=== PATIENT | female | born 1990 | race African-American/Black ===

== ENCOUNTER 2018-07-22 21:06 | Emergency (ER) | payer OTHER ==
[~2018-07-22] VITALS: Ht 167.6 cm; Wt 190.5 kg
[~2018-07-22 21:06] MED LIST: ACYCLOVIR 200200 MG PO; CIPROFLOXACIN500 M1 PO; CYCLOBENZAPRINE5 MG PO; FLAGYL500 MG PO; IBUPROFEN 600600 M1 PO; KEFLEX500 MG PO; NOHOMEMEDICATIONS; NORCO 5-325 TA1 EACH PO; NORCO 7.5-3251 EACH PO; PRENATAL COMPL1 EACH PO; PRILOSEC 20 MG20 MG PO; TRAMADOL 50 MG50 MG PO; VALIUM2 MG PO; ZOFRAN ODT4 MG PO
[2018-07-22 21:10] VITALS: BP 146/86
== END 2018-07-22 22:05 | disposition home or self-care (01) ==
LOC: ER 21:06
DX: S40.862A Insect bite (nonvenomous) of left upper arm, initial encounter (principal); I50.9 Heart failure, unspecified; Z90.49 Acquired absence of other specified parts of digestive tract; Z98.890 Other specified postprocedural states; W57.XXXA Bitten or stung by nonvenomous insect and other nonvenomous arthropods, initial encounter; Y93.89 Activity, other specified; Y92.89 Other specified places as the place of occurrence of the external cause; Y99.8 Other external cause status

== ENCOUNTER 2018-09-08 11:22 | Emergency (ER) | payer OTHER ==
[~2018-09-08] VITALS: Ht 167.6 cm; Wt 181.4 kg
[2018-09-08 11:37] VITALS: BP 168/47
[2018-09-08 11:46] LABS: URINE BILIRUBIN NEGATIVE (Negative); URINE BLOOD TRACE (Negative); URINE CLARITY CLEAR; URINE COLOR YELLOW; URINE GLUCOSE-RANDOM* NEGATIVE (Negative); URINE KETONES NEGATIVE (Negative); URINE LEUKOCYTES-REFLEX 3+ (Negative); URINE NITRITE-REFLEX POSITIVE (Negative); URINE PROTEIN (DIPSTICK) NEGATIVE (Negative); URINE UROBILINOGEN 0.2 E.U./dl (0.2-1.0)
[2018-09-08 11:54] LABS: AMORPHOUS URATES Moderate /LPF (None Seen); CASTS None Seen /LPF (None Seen); SQUAMOUS 4-10 Moderate /LPF (0-3); URINE RBC 3-10 Few /HPF (0-2); URINE WBC-REFLEX >25 Many /HPF (0-5); WBC CLUMPS Few (None Seen)
[2018-09-08] MEDS ORDERED: FLAGYL500 M1 PO (13:02)
[2018-09-08] MEDS ORDERED: KEFLEX500 M1 PO (13:03)
== END 2018-09-08 13:43 | disposition home or self-care (01) ==
LOC: ER 11:22
PROVIDERS: Emergency Medicine
DX: N39.0 Urinary tract infection, site not specified (principal); A59.01 Trichomonal vulvovaginitis; Z90.49 Acquired absence of other specified parts of digestive tract; Z98.890 Other specified postprocedural states

== ENCOUNTER 2019-02-08 08:07 | Emergency (ER) | payer OTHER ==
[~2019-02-08] VITALS: Ht 167.6 cm; Wt 181.4 kg
[~2019-02-08 08:07] MED LIST changes: +FLAGYL500 M1 PO; +KEFLEX500 M1 PO
[2019-02-08 08:36] LABS: URINE BILIRUBIN NEGATIVE (Negative); URINE BLOOD NEGATIVE (Negative); URINE CLARITY SL CLOUDY; URINE COLOR YELLOW; URINE GLUCOSE-RANDOM* NEGATIVE (Negative); URINE KETONES NEGATIVE (Negative); URINE NITRITE-REFLEX NEGATIVE (Negative); URINE PROTEIN (DIPSTICK) NEGATIVE (Negative); URINE SPECIFIC GRAVITY <= 1.005 (1.005-1.035); URINE UROBILINOGEN 0.2 E.U./dl (0.2-1.0)
[2019-02-08 08:40] LABS: URINE LEUKOCYTES-REFLEX 1+ (Negative)
[2019-02-08 08:57] LABS: ABSOLUTE NEUTROPHILS 4.5 thou/uL (1.4-8.2); EOSINOPHILS 3.2 % (0.0-3.0); HEMATOCRIT 34.3 % (37.0-47.0); LYMPHOCYTES 29.1 % (24.0-44.0); MCH 25.9 pg (26.0-34.0); MONOCYTES 4.8 % (1.0-8.0); PLATELET COUNT 281 thou/uL (150-400); POLYS 61.9 % (36.0-66.0); RBC 4.23 mil/uL (4.20-5.00); RDW 17.2 % (10.5-14.5); WBC 7.3 thou/uL (4.0-11.0)
[2019-02-08 09:04] LABS: SQUAMOUS 4-10 Moderate /LPF (0-3)
[2019-02-08 09:05] LABS: BACTERIA-REFLEX 1-9 Few /HPF (None Seen); CASTS None Seen /LPF (None Seen); CRYSTALS None Seen /LPF (None Seen); URINE RBC None Seen /HPF (0-2); URINE WBC-REFLEX 0-5 Rare /HPF (0-5)
[2019-02-08 09:07] LABS: ANION GAP 4 mmol/L (7-16); BUN 9 mg/dL (7-18); CALCIUM 9.4 mg/dL (8.5-10.1); CHLORIDE 105 mmol/L (98-107); CO2 29 mmol/L (21-32); CREATININE 0.7 mg/dL (0.6-1.0); GLUCOSE 91 mg/dL (74-106); POTASSIUM 5.1 mmol/L (3.5-5.1); SODIUM 138 mmol/L (136-145)
[2019-02-08 09:17] LABS: ALBUMIN 2.9 g/dL (3.4-5.0); LIPASE 116 U/L (73-393); SGOT 27 U/L (15-37); SGPT 16 U/L (30-65); TOTAL BILIRUBIN 0.3 mg/dL (<0.1-1.0); TOTAL PROTEIN 8.3 g/dL (6.4-8.2); TROPONIN-I <0.06 ng/mL (<0.06)
[2019-02-08 13:01] VITALS: BP 131/86
--- NOTE | 2019-02-09 11:15 | EKG ---
[address] [place] [address] ELECTROCARDIOGRAM REPORT Name: SUSANNARODDY [id number] Admission: 02/08/19 Attend Phys: Discharge: 02/08/19 Date of : 86 Report #: [id number] THIS REPORT FOR: //name// [facility] ED Test Date: 2019-02-08 Test Time: 12:24:12 Pat Name: RODDY MULLINS Department: Room: Gender: F [employer] Maker: SILVIA : 1990 Requested By: Hira Klein Order Number: [id number] MD: Len West Measurements Intervals [place] Rate: 68 P: 42 MS: 177 QRS: 6 QRSD: 101 T: 12 QT: 415 QTc: 442 Interpretive Statements Sinus rhythm Low voltage, precordial leads Probable left ventricular hypertrophy Borderline T abnormalities, anterior leads Baseline wander in lead(s) V6 No previous ECG available for comparison Electronically Signed On 02-09-2019 11:14:46 DREDGEMASTER by Len West [email or web address] <ELECTRONICALLY SIGNED> By: Len West MD 02/09/19 1114 1224 1224 Len West MD /RIAZ
== END 2019-02-08 13:03 | disposition home or self-care (01) ==
LOC: ER 08:07
PROVIDERS: Emergency Medicine
DX: R10.11 Right upper quadrant pain (principal); R10.2 Pelvic and perineal pain; M54.5 Low back pain; Z98.890 Other specified postprocedural states; Z90.49 Acquired absence of other specified parts of digestive tract; Z98.51 Tubal ligation status